=== PATIENT | female | born 1970 | race Caucasian/White ===

== ENCOUNTER 2021-02-21 12:36 | Outpatient (CLI) | payer MEDICAID ==
[~2021-02-21 12:36] MED LIST: HALO5AMP3; MIRT15TA3 PO
== END 2021-02-21 12:52 | disposition home or self-care (01) ==
LOC: LDOP 12:36
PROVIDERS: ATTEND Obstetrics & Gynecology
DX: Z02.9 Encounter for administrative examinations, unspecified (principal)